=== PATIENT | female | born 1960 | race Caucasian/White ===

== ENCOUNTER → 2018-05-18 | Outpatient (CLI) | payer OTHER ==
[~2018-05-18] MED LIST: ALPR.5 PO; PROP10; SERT50 PO; SOMA250 MG PO
== END | disposition home or self-care (01) ==
LOC: LAB SHORT 08:49 → PLD 08:49
DX: L57.0 Actinic keratosis (principal); L81.9 Disorder of pigmentation, unspecified
CPT/HCPCS: 88305

== ENCOUNTER 2020-06-24 16:11 | Emergency (ER) | payer OTHER ==
[~2020-06-24] VITALS: Ht 170.2 cm; Wt 63.5 kg
[~2020-06-24 16:11] MED LIST changes: +ESTMED PO; +LEVSOD75 PO; +PROG100 PO
[2020-06-24] MEDS ORDERED: SYNTHROID88 MCG PO (16:34)
[2020-06-24] MEDS ORDERED: Alprazolam1 MG (16:36)
[2020-06-24] MEDS ORDERED: ESTRADIOL1 M1 PO (16:37)
[2020-06-24] MEDS ORDERED: PROG100 PO (16:37)
[2020-06-24] MEDS ORDERED: PANTOPRAZOLE SO40 M2 PO (16:37)
[2020-06-24] MEDS ORDERED: ZOLOFT25 MG PO (16:37)
[2020-06-24] MEDS ORDERED: ONDA4ODT MM (19:27)
[2020-06-24] MEDS ORDERED: Roxicodone5 MG PO (19:27)
== END 2020-06-24 19:46 | disposition home or self-care (01) ==
LOC: ER 16:11
DX: S52.572A Other intraarticular fracture of lower end of left radius, initial encounter for closed fracture (principal); E03.9 Hypothyroidism, unspecified; I10 Essential (primary) hypertension; F17.210 Nicotine dependence, cigarettes, uncomplicated; Z79.3 Long term (current) use of hormonal contraceptives; Z88.5 Allergy status to narcotic agent; Z79.4 Long term (current) use of insulin; Z79.899 Other long term (current) drug therapy; V00.848A Other accident with standing micro-mobility pedestrian conveyance, initial encounter
CPT/HCPCS: 25605; 73030; 73100; 73110; 96374-59; 96375-59; 99283-25; A9270; A9270-GY; J1170; J2405

== ENCOUNTER 2020-06-27 11:24 | Day surgery (SDC) | payer OTHER ==
[~2020-06-27] VITALS: Ht 170.2 cm; Wt 63.5 kg
[~2020-06-27 11:24] MED LIST changes: +Alprazolam1 MG; +ESTRADIOL1 M1 PO; +ONDA4ODT MM; +PANTOPRAZOLE SO40 M2 PO; +Roxicodone5 MG PO; +SYNTHROID88 MCG PO; +ZOLOFT25 MG PO
--- NOTE | 2020-06-27 17:09 | NUR ---
Patient up to Ambulate independently. Gait steady. Discharge instructions reviewed with patient. Patient verbalizes understanding. Copy given to patient to take home WITH SPOUSE. Discharged via wheelchair to private car for ride home.
--- NOTE | 2020-06-30 14:56 | NUR ---
06/30/20 1456 Lexy Ariza VERIFICATIONS: EDIT CHART.
== END 2020-06-27 23:11 | disposition home or self-care (01) ==
LOC: ORSCMMR 11:24
PROVIDERS: Orthopaedic Surgery
PROC: 0PSJ04Z Reposition Left Radius with Internal Fixation Device, Open Approach (ICD-10-PCS; principal; 2020-06-27 12:30)
DX: S52.502A Unspecified fracture of the lower end of left radius, initial encounter for closed fracture (principal); G47.33 Obstructive sleep apnea (adult) (pediatric); I10 Essential (primary) hypertension; E03.9 Hypothyroidism, unspecified; F41.9 Anxiety disorder, unspecified; B19.20 Unspecified viral hepatitis C without hepatic coma; Z79.899 Other long term (current) drug therapy
CPT/HCPCS: A9270-GY; C1713; J0690; J1100; J1885; J2250; J2405; J2704; J2795; J3010; J7120

== ENCOUNTER 2021-01-12 15:07 | Day surgery (SDC) | payer OTHER ==
[~2021-01-12] VITALS: Ht 170.2 cm; Wt 63.6 kg
[~2021-01-12 15:07] MED LIST changes: +ESTRADIOL1 MG PO; +METO25ER PO
[2021-01-12] MEDS ORDERED: LOSA50 (15:49)
[2021-01-12] MEDS ORDERED: LEVOTHYROXINE88 MC2 (15:50)
== END 2021-01-12 18:12 | disposition home or self-care (01) ==
LOC: ORSCSDS 15:07
PROVIDERS: Podiatrist Foot & Ankle Surgery
PROC: 01BG0ZZ Excision of Tibial Nerve, Open Approach (ICD-10-PCS; principal; 2021-01-12 16:30)
DX: G57.62 Lesion of plantar nerve, left lower limb (principal); I10 Essential (primary) hypertension; F41.9 Anxiety disorder, unspecified; E07.9 Disorder of thyroid, unspecified; Z79.899 Other long term (current) drug therapy; F17.210 Nicotine dependence, cigarettes, uncomplicated
CPT/HCPCS: 88304; A9270; J0171; J0690; J1100; J1885; J2405; J2704; J3010; J7120

== ENCOUNTER 2021-05-29 10:07 | Day surgery (SDC) | payer OTHER ==
[~2021-05-29] VITALS: Ht 172.7 cm; Wt 63.3 kg
[~2021-05-29 10:07] MED LIST changes: +LEVOTHYROXINE88 MC2; +LOSA50
[2021-05-29] MEDS ORDERED: AMOX-CLAV 875-1 EAC5 PO (10:57)
[2021-05-29] MEDS ORDERED: PANTOPRAZOLE SO40 M2 PO (10:58)
--- NOTE | 2021-05-29 11:43 | NUR ---
05/29/21 1143 Goldy Dunn BUPIVACAINE 0.5% 150 MG MIXED W/ EPI 0.15MG PER ORDER FOR INJECTION AT OPSITE BY DR PALM. 30 MLS INJECTED.
== END 2021-05-29 12:55 | disposition home or self-care (01) ==
LOC: ORSCSDS 10:07
PROVIDERS: Podiatrist Foot & Ankle Surgery
PROC: 0LBW0ZZ Excision of Left Foot Tendon, Open Approach (ICD-10-PCS; principal; 2021-05-29 11:30)
DX: M67.472 Ganglion, left ankle and foot (principal); I10 Essential (primary) hypertension; F17.210 Nicotine dependence, cigarettes, uncomplicated; G47.33 Obstructive sleep apnea (adult) (pediatric); E03.9 Hypothyroidism, unspecified; Z79.899 Other long term (current) drug therapy
CPT/HCPCS: J0171; J0690; J1100; J1885; J2250; J2405; J2704; J3010; J7120

== ENCOUNTER → 2022-05-03 | Outpatient (CLI) | payer OTHER ==
[~2022-05-03] MED LIST changes: +AMOX-CLAV 875-1 EAC5 PO
== END | disposition home or self-care (01) ==
LOC: LAB SHORT 12:13 → PLD 12:13
DX: D48.5 Neoplasm of uncertain behavior of skin (principal)
CPT/HCPCS: 88305

== ENCOUNTER → 2022-09-09 | Outpatient (CLI) | payer OTHER ==
[2022-09-09 18:08] LABS: Adenovirus F 40/41 Not Detected (NOT DETECT); Astrovirus Not Detected (NOT DETECT); Campylobacter Sp Not Detected (NOT DETECT); Cryptosporidium Not Detected (NOT DETECT); Cyclospora Cayetanensis Not Detected (NOT DETECT); E. Coli O157 Not Detected (NOT DETECT); Entamoeba Histolytica Not Detected (NOT DETECT); Enteroaggregative E. coli-EAEC Not Detected (NOT DETECT); Enteropathogenic E. coli-EPEC Not Detected (NOT DETECT); Enterotoxigenic E. coli-ETEC Not Detected (NOT DETECT); Giardia Lamblia Not Detected (NOT DETECT); Norovirus GI/GII Not Detected (NOT DETECT); Plesiomonas Shigelloides Not Detected (NOT DETECT); Rotavirus A Not Detected (NOT DETECT); Salmonella Sp Not Detected (NOT DETECT); Sapovirus Not Detected (NOT DETECT); Shiga Toxin-prod E. coli-STEC Not Detected (NOT DETECT); Shigella/Enteroin E. coli-EIEC Not Detected (NOT DETECT); Vibrio Cholerae Not Detected (NOT DETECT); Vibrio Sp Not Detected (NOT DETECT); Yersinia Enterocolitica Not Detected (NOT DETECT)
== END | disposition home or self-care (01) ==
LOC: LAB SHORT 09:56 → LAB 09:56
PROVIDERS: Nurse Practitioner Family
DX: R10.84 Generalized abdominal pain (principal); R15.9 Full incontinence of feces
CPT/HCPCS: 87324; 87338; 87507